=== PATIENT | female | born 1985 | race Caucasian/White ===

== ENCOUNTER → 2016-05-11 | Outpatient (CLI) | payer BC ==
--- NOTE | 2016-05-11 13:16 | US ---
EXAMINATION TYPE: US OB anatomy transabd DATE OF EXAM: 05/11/2016 11:46 AM COMPARISON: NONE HISTORY: Large for dates; TECHNIQUE: Transabdominal (TA) EXAM MEASUREMENTS: GESTATIONAL AGE / DATING Physician Established: (18 weeks/4 days) EDC: 10/08/2016 Dates by LMP: (18 weeks/4 days) EDC: 10/08/2016 Dates by First Scan: today Dates by Current Scan for: (18 weeks/5 days) EDC: 10/07/2016 SURVEY IUP: Single PLACENTA: fundal/posterior PREVIA: No previa JABIER: 10.7 cm Normal CERVICAL LENGTH (transabdominal: norm > 3.0cm): 4.3 cm BIOMETRY PRESENTATION: Vertex LIE: Longitudinal BPD: 4.4 cm 19 weeks / 1 day HC: 16.1 cm 18 weeks / 6 days AC: 14.0 cm 19 weeks / 3 days FL: 2.7 cm 18 weeks / 2 days ESTIMATED WEIGHT IN GRAMS: 262.9 grams ESTIMATED WEIGHT IN LBS/OZS: 0 lbs. 9 oz. WEIGHT PERCENTAGE BASED ON ESTABLISHED DATE: 65.4 % HC/AC: 1.15 normal FL/AC: 19.48 normal HEART RATE: 146 bpm RHYTHM: Normal ANATOMY SEEN (within normal limits): * Lateral Vent (< 1 cm) 0.5 cm * Cisterna Magna (< 1.1 cm) 0.5 cm * Nuchal Fold (< 0.6 cm) 0.3 cm * Cerebellum (varies with age) 1.8 cm Choroid Plexus (bilateral) Midline Falx Cavus Septi Pellucidi Four Chamber Heart Outflow tracts: LVOT/RVOT Stomach Situs Diaphragm Kidneys (bilateral) Bladder Cord Insert Three Vessel Cord Longitudinal Spine Transverse Spine Arms (bilateral) Legs (bilateral) ANATOMY NOT SEEN: Nose / Lips as optimal survey is at > 20weeks gestation TECHNOLOGIST IMPRESSION: single, live IUP,18 weeks/5 days, EDC: 10/07/2016, HR 146 bpm. IMPRESSION: Richardson fetus present in a vertex lie with a gestational age of 18 weeks 5 days +/- 12 days. Estima victorina date of confinement based on this examination is 14/03/2017. Please note that the anatomic survey is mildly limited.
== END | disposition home or self-care (01) ==
LOC: RADUSWWP 10:57
PROVIDERS: ATTEND Obstetrics & Gynecology
DX: O36.62X0 Maternal care for excessive fetal growth, second trimester, not applicable or unspecified (principal); Z3A.18 18 weeks gestation of pregnancy
CPT/HCPCS: 76811

== ENCOUNTER → 2016-06-22 | Outpatient (CLI) | payer BC ==
[2016-06-22 13:19] LABS: CH 31.4; CHCM 33.1; HCT 35.6 % (34.0-46.0); HDW 2.43; HGB 11.4 gm/dL (11.4-16.0); MCH 30.5 pg (25.0-35.0); MCV 95.3 fL (80.0-100.0); Mean Platelet Volume 7.6; RBC 3.73 m/uL (3.80-5.40)
== END | disposition home or self-care (01) ==
LOC: LABWHC1 11:09
PROVIDERS: ATTEND Obstetrics & Gynecology
DX: Z34.82 Encounter for supervision of other normal pregnancy, second trimester (principal); Z3A.00 Weeks of gestation of pregnancy not specified
CPT/HCPCS: 36415; 82950; 85027

== ENCOUNTER 2016-09-28 02:21 | Inpatient (IN) | payer BC ==
[2016-09-28] MEDS ORDERED: LIDOCAINE 1% (PF) 10 MG/ML (30 ML SDV) SQ PRN (02:42)
[2016-09-28] MEDS ORDERED: TERBUTALINE 1 MG/ML VIAL SQ PRN (02:42)
[2016-09-28] MEDS ORDERED: OXYTOCIN 10 UNIT/ML 1 ML VIAL IM PRN (02:42)
[2016-09-28] MEDS ORDERED: METHYLERGONOVINE 0.2 MG/ML 1 ML AMP IM PRN (02:42)
[2016-09-28] MEDS ORDERED: AMPICILLIN 2,000 MG in SODIUM CHLORIDE 0.9% 100 ML IVPB STA (02:42)
[2016-09-28] MEDS ORDERED: CARBOPROST TROMETHAMINE 250 MCG/ML 1 ML AMP IM PRN (02:42)
[2016-09-28 02:57] VITALS: BMI 28.5
[2016-09-28] MEDS: LACTATED RINGERS 1,000 ML IV SCH ×3 (03:09→19:53)
[2016-09-28 03:20] LABS: Basophils # (A) 0.1 k/uL (0-0.2); Basophils % (A) 1 %; CH 31.5; CHCM 34.5; Eosinophils # (A) 0.5 k/uL (0-0.7); Eosinophils % (A) 4 %; HCT 39.9 % (34.0-46.0); HDW 2.25; HGB 13.6 gm/dL (11.4-16.0); Luc # (Auto) 0.23; Luc % (Auto) 2; Lymphocytes # (A) 2.3 k/uL (1.0-4.8); Lymphocytes % (A) 16 %; MCH 31.3 pg (25.0-35.0); MCHC 34.2 g/dL (31.0-37.0); MCV 91.7 fL (80.0-100.0); Mean Platelet Volume 8.3; Monocytes # (A) 0.5 k/uL (0-1.0); Monocytes % (A) 4 %; Neutrophils # (A) 10.8 k/uL (1.3-7.7); Neutrophils % (A) 75 %; RBC 4.34 m/uL (3.80-5.40); RDW 13.6 % (11.5-15.5); WBC 14.4 k/uL (3.8-10.6); WBC (Perox) 13.36
[2016-09-28] MEDS ORDERED: SODIUM CHLORIDE 0.9% 100 ML BAG ONE (06:56)
[2016-09-28] MEDS ORDERED: fentaNYL (PF) 50 MCG/ML 5 ML AMP ONE (06:56)
[2016-09-28] MEDS ORDERED: BUPIVACAINE (PF) 0.25% 30 ML VIAL ONE (06:56)
[2016-09-28] MEDS ORDERED: BUPIVACAINE (PF) 0.25% 25 ML, fentaNYL (PF) 200 MCG in SODIUM CHLORIDE 0.9% 71 ML EPIDURAL ONE (07:18)
[2016-09-28] MEDS: AMPICILLIN 1,000 MG in SODIUM CHLORIDE 0.9% 50 ML IVPB SCH ×3 (07:23→19:53)
[2016-09-28] MEDS ORDERED: BENZOCAINE/MENTHOL SPRAY 1 GM/SPRAY AEROSOL TOPICAL PRN (08:06)
[2016-09-28] MEDS ORDERED: diphenhydrAMINE 50 MG CAP PO PRN (08:06)
[2016-09-28] MEDS ORDERED: diphenhydrAMINE 50 MG/ML 1 ML VIAL IVP PRN ×2 (08:06)
[2016-09-28] MEDS ORDERED: WITCH HAZEL 1 EACH MED..PAD TOPICAL PRN (08:06)
[2016-09-28] MEDS ORDERED: SIMETHICONE 80 MG CHEWABLE PO PRN (08:06)
[2016-09-28] MEDS ORDERED: HYDROCORTISONE 2.5% RECTAL CREAM 30 GM TUBE RECTAL PRN (08:06)
[2016-09-28] MEDS ORDERED: ZOLPIDEM 5 MG TAB PO PRN (08:06)
[2016-09-28] MEDS ORDERED: ACETAMINOPHEN TAB 325 MG TAB PO PRN (08:06)
[2016-09-28] MEDS ORDERED: LANOLIN CREAM 5 GM TUBE TOPICAL PRN (08:06)
[2016-09-28] MEDS ORDERED: diphenhydrAMINE 25 MG CAP PO PRN (08:06)
[2016-09-28] MEDS ORDERED: Acetaminophen-Codeine 300-30mg TAB PO PRN ×2 (08:06)
--- NOTE | 2016-09-28 08:12 | P.HPOB ---
History of Present Illness H&P Date: 09/28/16 Chief Complaint: Intrauterine at term: Active labor: PROM Jenn is a 33-year-old at 38 weeks 4 days gestation arrives with contractions and spontaneous rupture membranes at approximately 8 PM last night. She stated home and waited for contractions to initiate despite knowing she was group B strep positive. Her only offering was that she does not like and robotic scissor passes with her GI system. She was aware of risks including meningitis and pneumonia newborns with exposure from group B streptococcus well. She will be treated for group B strep prophylaxis. course otherwise was unremarkable. Pertinent labs do include O+ blood type, rubella immune, hepatitis B surface antigen and RPR were both negative. Groupie strep again was positive. On physical exam her vital signs are stable and she is afebrile. Heart is regular, lungs are clear, extremities are without pain. Pelvic exam reveals her to be 3 cm dilated initially. heart tones in the 140s and are reactive. Assessment intrauterine at term/pROM/active labor. Plan epidural for analgesia and expect spontaneous vaginal delivery with group B strep prophylaxis. Past Medical History History of Any Multi-Drug Resistant Organisms: None Reported Additional Past Surgical History / Comment(s): wisdom teeth 2004 Past Anesthesia/Blood Transfusion Reactions: No Reported Reaction Past Psychological History: No Psychological Hx Reported Smoking Status: Never smoker Past Alcohol Use History: None Reported Past Drug Use History: None Reported - Past Family History Mother Family Medical History: No Reported History Medications and Allergies Home Medications Medication Instructions Recorded Confirmed Type Cetirizine HCl [Zyrtec] 10 mg PO DAILY 09/28/16 09/28/16 History 78/Iron/Folate 1/Dha 1 each PO DAILY 09/28/16 09/28/16 History [Prenate Dha Softgel] Allergies Allergy/AdvReac Type Severity Reaction Status Date / Time No Known Allergies Allergy Verified 09/28/16 02:22 Exam Osteopathic Statement: *. No significant issues noted on an osteopathic structural exam other than those noted in the History and Physical/Consult. - Vital Signs Vital signs: Vital Signs Temp Pulse Resp BP Pulse Ox 09/28/16 02:41 96.7 F L 74 18 138/79 100 09/28/16 02:24 96.7 F L 74 16 138/79 100 Intake and Output 09/27/16 09/28/16 09/28/16 22:59 06:59 14:59 Other: # Voids 1 Weight 70.76 kg Results Result Diagrams: 09/28/16 03:00 Abnormal Lab Results - Last 24 Hours (Table) 09/28/16 Range/Units 03:00 WBC 14.4 H (3.8-10.6) k/uL Neutrophils # 10.8 H (1.3-7.7) k/uL
--- NOTE | 2016-09-28 08:13 | P.PROBDLV ---
Vaginal Delivery Note - . Vaginal Delivery Note: Jenn progressed complete and pushed with spontaneous vaginal delivery of a viable male over an intact perineum. Following delivery of the head a nuchal cord 1 was noted and easily reduced. Anterior and posterior shoulders were then delivered with gentle downward upper traction the baby was delivered from left occiput anterior position. A was then placed on mother's abdomen following os nares bulb suctioned. Umbilical cord was allowed to pulsate for approximately 45 seconds prior to clamping and cutting. Once this was accomplished nursery personnel was present to assume care. Placenta was then delivered intact and Pitocin was added to the IV. scores were 9 and 9 at one and 5 minutes respectively and the weight was 6 lbs. 12 oz. Mother and baby both appear stable following delivery.
[2016-09-28] MEDS: IBUPROFEN 600 MG TAB PO PRN ×2 (13:35→20:29)
[2016-09-28] MEDS: SENNOSIDES-DOCUSATE SODIUM 1 EACH TAB PO SCH (20:30)
[2016-09-29] MEDS: IBUPROFEN 600 MG TAB PO PRN (08:24)
[2016-09-29] MEDS: SENNOSIDES-DOCUSATE SODIUM 1 EACH TAB PO SCH (08:25)
[2016-09-29 09:06] VITALS: BP 110/65; PULSE 72; RESP 16; TEMP 98.4
--- NOTE | 2016-09-29 10:37 | P.DS ---
Providers Date of admission: 09/28/16 02:40 Expected date of discharge: 09/29/16 Attending physician: Chapo Urias Primary care physician: Stated None Hospital Course: This is a 30-year-old female 3 para 2 at 38-4/7 weeks who presented with spontaneous rupture of membranes. She delivered vaginally a viable male infant on 09/28/2016 scores of 9 at 1 minute and 9 at 5 minutes and weight of 6 lbs. 12 oz. Her course has been uncomplicated. She is breast-feeding. Lochia is decreasing. Pain is well-controlled with ibuprofen. Vital signs are stable. Abdomen is soft with fundus firm and nontender. Extremities show negative Homans. Impression is status post vaginal delivery day #1. Plan is to discharge home today. She will be given a prescription for ibuprofen. She has a breast pump at home. Routine instructions are given. She is advised to follow up with Dr. Urias in 6 weeks. She is advised to call the office if she has any further questions or concerns prior to her appointment time. Procedures: Spontaneous vaginal delivery of a viable male on 09/28/2016 Patient Condition at Discharge: Stable Plan - Discharge Summary New Discharge Prescriptions: New Ibuprofen [Motrin] 600 mg PO Q6HR PRN #60 tab PRN Reason: Mild Pain Or Fever >= 100.5 Continue 78/Iron/Folate 1/Dha [Prenate Dha Softgel] 1 each PO DAILY No Action Cetirizine HCl [Zyrtec] 10 mg PO DAILY Discharge Medication List Cetirizine HCl [Zyrtec] 10 mg PO DAILY 09/28/16 [History] 78/Iron/Folate 1/Dha [Prenate Dha Softgel] 1 each PO DAILY 09/28/16 [ History] Ibuprofen [Motrin] 600 mg PO Q6HR PRN #60 tab 09/29/16 [Rx] Follow up Appointment(s)/Referral(s): Chapo Urias DO [Doctor of Osteopathic Medicine] - 6 Weeks Activity/Diet/Wound Care/Special Instructions: Instructions 1. Do not begin any exercise program for 3 weeks. 2. Do not resume sexual relations for 3 weeks or longer if uncomfortable. 3. You may take tub baths or showers at any time. 4. You may use tampons if desired after 3 weeks. 5. Keep the area of episiotomy (stitches) clean and dry. 6. If you are not nursing, wear a good fitting, supportive bra during the day and limit fluid intake for at least 1 week to prevent breast engorgement. 7. Call the office, [phone], within the next week to make appointment for your 6 week checkup if it has not already been made. 8. Report any of the following occurrences to the doctor promptly: a. Heavy, excessive bleeding b. Chills, fever c. Burning or frequency of urination d. Pain or redness and breasts if nursing e. Increasing pain or swelling in episiotomy (stitches). In addition to the above instructions, the following additional should be followed: 1. No heavy lifting or straining (exercising) until after 6 week checkup. 2. Keep abdominal incision clean and dry: You may wear a dressing if more comfortable. 3. Make office appointment for 10 days after going home or as instructed by her doctor. Discharge Disposition: HOME SELF-CARE
== END 2016-09-29 13:35 | disposition home or self-care (01) | DRG 775 ==
LOC: FBPOP 02:21 → 4FBP 02:40
PROVIDERS: ADMIT Obstetrics & Gynecology; ATTEND Obstetrics & Gynecology
PROC: 10E0XZZ Delivery of Products of Conception, External Approach (ICD-10-PCS; principal; 2016-09-28)
DX: O42.92 Full-term premature rupture of membranes, unspecified as to length of time between rupture and onset of labor (principal); O99.824 Streptococcus B carrier state complicating childbirth; O69.81X0 Labor and delivery complicated by cord around neck, without compression, not applicable or unspecified; Z37.0 Single live birth; Z3A.38 38 weeks gestation of pregnancy
CPT/HCPCS: 59025; 84112; 85025; 88307; 99213